=== PATIENT | female | born 1950 | race Caucasian/White ===

== ENCOUNTER 2018-10-28 02:08 | Inpatient (IN) | payer MEDICARE, BC ==
[2018-10-28] VITALS (8 sets, daily range): BP systolic 95–132; BP diastolic 40–75
[~2018-10-28] VITALS: Ht 162.6 cm; Wt 78.5 kg
[2018-10-28] MEDS ORDERED: IPRATROPIUM BROMIDE (0.02%) 0.5MG/2.5ML NEB HHN STA (02:45)
[2018-10-28] MEDS ORDERED: METHYLPREDNISOLONE SOD SUCC 125 MG/2 ML VIAL IV STA (02:45)
[2018-10-28] MEDS ORDERED: MAGNESIUM 2 G PREMIX 50 ML IV ONE (02:45)
[2018-10-28] MEDS ORDERED: ALBUTEROL (0.083%) 2.5MG/3ML NEB HHN SCH (03:00)
[2018-10-28 03:11] LABS: BG BASE EXCESS 2.2 mmol/L (-2.0-2.0); BG CARBOXYHEMOGLOBIN 4.6 % (0.5-1.5); BG DEOXYHEMOGLOBIN 0.9 % (0.0-5.0); BG FRACTION INSPIRED OXYGEN 60; BG HCO3 ACT 30.3 mmol/L (22.0-26.0); BG METHEMOGLOBIN 0.4 % (0.0-1.5); BG OXYGEN SATURATION 99.1 % (92.0-98.5); BG OXYHEMOGLOBIN 94.1 % (94.0-97.0); BG PCO2 61.1 mmHg (35.0-45.0); BG PH 7.313 (7.350-7.450); BG PO2 158.6 mmHg (75.0-100.0); BG SAMPLE SITE RIGHT BRACHIAL; BG TOTAL HEMOGLOBIN 16.2 g/dL (12.0-18.0)
[2018-10-28 04:09] LABS: HEMATOCRIT. 47.5 % (36.0-48.0); HEMOGLOBIN. 16.2 g/dL (12.0-16.0); MEAN CORPUSCULAR HEMOGLOBIN 30.5 pg (28.0-32.0); MEAN CORPUSCULAR VOLUME 89.3 fL (81.0-99.0); MEAN PLATELET VOLUME 9.3 fl (7.4-10.4); PLATELET 222 x1000/uL (130-400); RED BLOOD CELL COUNT 5.32 mill/uL (4.2-5.4); RED CELL DISTRIBUTION WIDTH 13.9 % (11.6-14.6)
[2018-10-28 04:13] LABS: CHLORIDE 96 mEq/L (98-107)
[2018-10-28] MEDS ORDERED: SODIUM CHLORIDE 0.9% 1,000 ML IV ONE (05:28)
[2018-10-28] MEDS ORDERED: POTASSIUM CHLORIDE 20MEQ TABLET SR PO ONE (05:30)
[2018-10-28 07:17] LABS: PLATELET ESTIMATE NORMAL
[2018-10-28] MEDS ORDERED: ESCI10TA MT (10:20)
[2018-10-28] MEDS ORDERED: ESCI20TA MT (10:20)
[2018-10-28] MEDS ORDERED: RAMI2.5C10 PO (10:21)
[2018-10-28] MEDS ORDERED: FLUT1AER IH (10:23)
[2018-10-28] MEDS ORDERED: ALBU6.7H9 INH (10:24)
[2018-10-28] MEDS ORDERED: IPRATROPIUM/ALBUTEROL 0.5-3(2.5)MG/3ML NEB INH PRN (11:15)
[2018-10-28] MEDS ORDERED: ONDANSETRON HCL 4MG/2ML INJ IV PRN (11:15)
[2018-10-28] MEDS ORDERED: NA PHOS,M-B/NA PHOS,DI-BA ENEMA 118ML PR PRN (11:15)
[2018-10-28] MEDS ORDERED: LORAZEPAM 0.5MG TABLET PO PRN (11:15)
[2018-10-28] MEDS ORDERED: MAGNESIUM/ALUMINUM HYDROXIDE/SIMETHICONE 30ML UDC PO PRN (11:15)
[2018-10-28] MEDS ORDERED: DOCUSATE SODIUM 100MG CAPSULE PO PRN (11:15)
[2018-10-28] MEDS ORDERED: ACETAMINOPHEN 325MG TABLET PO PRN (11:15)
[2018-10-28] MEDS ORDERED: ZOLPIDEM TARTRATE 5MG TABLET PO PRN (11:15)
[2018-10-28] MEDS ORDERED: CLONIDINE 0.1MG TABLET PO PRN (11:15)
[2018-10-28] MEDS ORDERED: TRAMADOL 50MG TABLET PO PRN (11:15)
[2018-10-28] MEDS ORDERED: POTASSIUM CHLORIDE 20MEQ TABLET SR PO NR (11:15)
[2018-10-28] MEDS: IPRATROPIUM/ALBUTEROL 0.5-3(2.5)MG/3ML NEB HHN SCH ×4 (11:44→21:06)
[2018-10-28] MEDS ORDERED: KCL 20MEQ/100ML PREMIX 100 ML IV NR (12:00)
[2018-10-28] MEDS: ENOXAPARIN 40MG/0.4ML SYR SUBCUT SCH (12:22)
[2018-10-28] MEDS: METHYLPREDNISOLONE SOD SUCC 125 MG/2 ML VIAL IV SCH ×2 (12:22→20:18)
[2018-10-28] MEDS: LEVOFLOXACIN 500MG PREMIX 100 ML IV SCH (15:12)
[2018-10-28 17:55] LABS: CREATINE KINASE 83 IU/L (26-192)
[2018-10-28 17:56] LABS: CREATINE KINASE MB FRACTION 4.3 ng/mL (0.5-3.6)
[2018-10-28 20:15] LABS: *COCAINE SCREEN URINE NEGATIVE (NEGATIVE)
[2018-10-28 20:16] LABS: *AMPHETAMINES SCREEN URINE NEGATIVE (NEGATIVE); *BARBITURATES SCREEN URINE NEGATIVE (NEGATIVE); CANNABINOID URINE SCREEN NEGATIVE (NEGATIVE); METHADONE URINE SCREEN NEGATIVE (NEGATIVE); OPIATES URINE SCREEN PRESUMTIVE POSITIVE (NEGATIVE); PHENCYCLIDINE URINE SCREEN NEGATIVE (NEGATIVE)
[2018-10-28 20:17] LABS: *BENZODIAZEPINES SCREEN URINE NEGATIVE (NEGATIVE)
[2018-10-28] MEDS: GUAIFENESIN 600MG ER TABLET PO SCH (20:17)
[2018-10-28] MEDS: FAMOTIDINE 20MG TABLET PO SCH (20:17)
[2018-10-28] MEDS: ASCORBIC ACID 500 MG TABLET PO SCH (20:17)
[2018-10-29] VITALS (12 sets, daily range): BP systolic 97–130; BP diastolic 57–74
[2018-10-29 00:02] LABS: CREATINE KINASE 86 IU/L (26-192)
[2018-10-29 00:03] LABS: CREATINE KINASE MB FRACTION 3.6 ng/mL (0.5-3.6)
[2018-10-29] MEDS: IPRATROPIUM/ALBUTEROL 0.5-3(2.5)MG/3ML NEB HHN SCH ×5 (01:10→21:16)
[2018-10-29] MEDS: METHYLPREDNISOLONE SOD SUCC 125 MG/2 ML VIAL IV SCH ×3 (03:16→20:18)
[2018-10-29 06:21] LABS: CHLORIDE 103 mEq/L (98-107)
[2018-10-29] MEDS: GUAIFENESIN 600MG ER TABLET PO SCH ×2 (08:38→20:18)
[2018-10-29] MEDS: ASPIRIN 325MG EC TABLET PO SCH (08:38)
[2018-10-29] MEDS: ASCORBIC ACID 500 MG TABLET PO SCH ×2 (08:38→20:18)
[2018-10-29] MEDS: FAMOTIDINE 20MG TABLET PO SCH ×2 (08:38→20:18)
[2018-10-29] MEDS: ENOXAPARIN 40MG/0.4ML SYR SUBCUT SCH (11:13)
[2018-10-29] MEDS: LEVOFLOXACIN 500MG PREMIX 100 ML IV SCH (11:13)
[2018-10-29] MEDS: GUAIFENESIN 200MG/10ML SUGAR FREE UDC PO PRN (16:49)
[2018-10-30] VITALS (12 sets, daily range): BP systolic 98–154; BP diastolic 60–118
[2018-10-30] MEDS: IPRATROPIUM/ALBUTEROL 0.5-3(2.5)MG/3ML NEB HHN SCH ×6 (00:54→21:14)
[2018-10-30] MEDS: METHYLPREDNISOLONE SOD SUCC 125 MG/2 ML VIAL IV SCH ×3 (04:13→20:53)
[2018-10-30] MEDS: FAMOTIDINE 20MG TABLET PO SCH ×2 (08:39→20:53)
[2018-10-30] MEDS: ASPIRIN 325MG EC TABLET PO SCH (08:39)
[2018-10-30] MEDS: GUAIFENESIN 600MG ER TABLET PO SCH ×2 (08:39→20:53)
[2018-10-30] MEDS: ASCORBIC ACID 500 MG TABLET PO SCH ×2 (08:39→20:53)
[2018-10-30 12:07] LABS: BG CARBOXYHEMOGLOBIN 0.8 % (0.5-1.5); BG DEOXYHEMOGLOBIN 4.7 % (0.0-5.0); BG FRACTION INSPIRED OXYGEN 36; BG HCO3 ACT 28.6 mmol/L (22.0-26.0); BG METHEMOGLOBIN 0.3 % (0.0-1.5); BG OXYGEN SATURATION 95.2 % (92.0-98.5); BG OXYHEMOGLOBIN 94.2 % (94.0-97.0); BG PH 7.358 (7.350-7.450); BG PO2 75.9 mmHg (75.0-100.0); BG SAMPLE SITE RIGHT BRACHIAL; BG TOTAL HEMOGLOBIN 14.7 g/dL (12.0-18.0); BG VENT MODE NASAL CANNULA
[2018-10-30] MEDS: ENOXAPARIN 40MG/0.4ML SYR SUBCUT SCH (12:37)
[2018-10-30] MEDS: LEVOFLOXACIN 500MG PREMIX 100 ML IV SCH (12:52)
[2018-10-31] VITALS (12 sets, daily range): BP systolic 103–152; BP diastolic 48–91
[2018-10-31] MEDS: IPRATROPIUM/ALBUTEROL 0.5-3(2.5)MG/3ML NEB HHN SCH ×6 (00:58→21:12)
[2018-10-31] MEDS: METHYLPREDNISOLONE SOD SUCC 125 MG/2 ML VIAL IV SCH ×3 (05:44→20:15)
[2018-10-31] MEDS: ASPIRIN 325MG EC TABLET PO SCH (08:56)
[2018-10-31] MEDS: GUAIFENESIN 600MG ER TABLET PO SCH ×2 (08:56→20:15)
[2018-10-31] MEDS: ASCORBIC ACID 500 MG TABLET PO SCH ×2 (08:57→20:16)
[2018-10-31] MEDS: FAMOTIDINE 20MG TABLET PO SCH (08:57)
[2018-10-31] MEDS: LEVOFLOXACIN 500MG PREMIX 100 ML IV SCH (12:50)
[2018-10-31] MEDS: ENOXAPARIN 40MG/0.4ML SYR SUBCUT SCH (12:50)
[2018-10-31] MEDS ORDERED: TERBUTALINE SULFATE 1MG/ML VIAL SUBCUT NR (14:45)
[2018-10-31] MEDS ORDERED: AZITHROMYCIN 500 MG TABLET PO SCH (15:00)
[2018-10-31 15:42] LABS: BG BASE EXCESS 5.8 mmol/L (-2.0-2.0); BG CARBOXYHEMOGLOBIN 0.8 % (0.5-1.5); BG DEOXYHEMOGLOBIN 4.7 % (0.0-5.0); BG FRACTION INSPIRED OXYGEN 36; BG HCO3 ACT 32.6 mmol/L (22.0-26.0); BG METHEMOGLOBIN 0.3 % (0.0-1.5); BG OXYGEN SATURATION 95.2 % (92.0-98.5); BG OXYHEMOGLOBIN 94.2 % (94.0-97.0); BG PCO2 55.4 mmHg (35.0-45.0); BG PH 7.387 (7.350-7.450); BG PO2 73.5 mmHg (75.0-100.0); BG SAMPLE SITE RIGHT BRACHIAL; BG VENT MODE NASAL CANNULA
[2018-10-31 16:02] LABS: HEMOGLOBIN. 14.4 g/dL (12.0-16.0); MEAN CORPUSCULAR VOLUME 89.6 fL (81.0-99.0); MEAN PLATELET VOLUME 9.1 fl (7.4-10.4); PLATELET 216 x1000/uL (130-400); RED BLOOD CELL COUNT 4.79 mill/uL (4.2-5.4); RED CELL DISTRIBUTION WIDTH 13.9 % (11.6-14.6)
[2018-10-31 16:22] LABS: CHLORIDE 99 mEq/L (98-107)
[2018-10-31 16:29] LABS: PLATELET ESTIMATE NORMAL
[2018-10-31] MEDS: MONTELUKAST SODIUM 10MG TABLET PO SCH (17:58)
[2018-10-31] MEDS: FAMOTIDINE 20MG/2ML VIAL IV SCH (20:15)
[2018-10-31] MEDS: LORATADINE 10MG TABLET PO SCH (20:16)
[2018-10-31] MEDS: FLUTICASONE PROPIONATE 50MCG/SPRAY BOTTLE BOTHNSTRLS SCH (20:17)
[2018-11-01] VITALS (12 sets, daily range): BP systolic 115–151; BP diastolic 64–89
[2018-11-01] MEDS: IPRATROPIUM/ALBUTEROL 0.5-3(2.5)MG/3ML NEB HHN SCH ×6 (00:42→20:56)
[2018-11-01] MEDS: METHYLPREDNISOLONE SOD SUCC 125 MG/2 ML VIAL IV SCH ×2 (03:24→12:43)
[2018-11-01] MEDS: ASCORBIC ACID 500 MG TABLET PO SCH ×2 (08:28→21:09)
[2018-11-01] MEDS: ASPIRIN 325MG EC TABLET PO SCH (08:28)
[2018-11-01] MEDS: FAMOTIDINE 20MG/2ML VIAL IV SCH ×2 (08:28→21:09)
[2018-11-01] MEDS: GUAIFENESIN 600MG ER TABLET PO SCH ×2 (08:28→21:09)
[2018-11-01] MEDS: FLUTICASONE PROPIONATE 50MCG/SPRAY BOTTLE BOTHNSTRLS SCH ×2 (08:29→21:12)
[2018-11-01] MEDS: AZITHROMYCIN 250 MG TABLET PO SCH (09:19)
[2018-11-01] MEDS: ENOXAPARIN 40MG/0.4ML SYR SUBCUT SCH (12:43)
[2018-11-01] MEDS: LEVOFLOXACIN 500MG PREMIX 100 ML IV SCH (12:44)
[2018-11-01] MEDS: GUAIFENESIN 200MG/10ML SUGAR FREE UDC PO PRN (12:44)
[2018-11-01] MEDS ORDERED: METHYLPREDNISOLONE SOD SUCC 40 MG/ML VIAL IV SCH (15:00)
[2018-11-01] MEDS ORDERED: TERBUTALINE SULFATE 1MG/ML VIAL SUBCUT NR (15:00)
[2018-11-01 16:03] LABS: BG BASE EXCESS 9.6 mmol/L (-2.0-2.0); BG CARBOXYHEMOGLOBIN 0.9 % (0.5-1.5); BG DEOXYHEMOGLOBIN 10.2 % (0.0-5.0); BG FRACTION INSPIRED OXYGEN 21; BG HCO3 ACT 35.5 mmol/L (22.0-26.0); BG METHEMOGLOBIN 0.3 % (0.0-1.5); BG OXYGEN SATURATION 89.7 % (92.0-98.5); BG OXYHEMOGLOBIN 88.6 % (94.0-97.0); BG PCO2 51.6 mmHg (35.0-45.0); BG PH 7.455 (7.350-7.450); BG PO2 52.9 mmHg (75.0-100.0); BG SAMPLE SITE LEFT RADIAL; BG TOTAL HEMOGLOBIN 15.5 g/dL (12.0-18.0); BG VENT MODE ROOM AIR
[2018-11-01] MEDS: MONTELUKAST SODIUM 10MG TABLET PO SCH (16:59)
[2018-11-01] MEDS: LORATADINE 10MG TABLET PO SCH (21:09)
[2018-11-01] MEDS: METHYLPREDNISOLONE SOD SUCC 40 MG/ML VIAL IV SCH (22:07)
[2018-11-02] VITALS (12 sets, daily range): BP systolic 116–168; BP diastolic 63–100
[2018-11-02] MEDS: IPRATROPIUM/ALBUTEROL 0.5-3(2.5)MG/3ML NEB HHN SCH ×6 (00:25→20:26)
[2018-11-02] MEDS: METHYLPREDNISOLONE SOD SUCC 40 MG/ML VIAL IV SCH ×2 (05:14→13:01)
[2018-11-02] MEDS: ASPIRIN 325MG EC TABLET PO SCH (08:55)
[2018-11-02] MEDS: GUAIFENESIN 600MG ER TABLET PO SCH ×2 (08:55→22:12)
[2018-11-02] MEDS: FAMOTIDINE 20MG/2ML VIAL IV SCH ×2 (08:55→22:07)
[2018-11-02] MEDS: ASCORBIC ACID 500 MG TABLET PO SCH ×2 (08:55→22:07)
[2018-11-02] MEDS: AZITHROMYCIN 250 MG TABLET PO SCH (09:04)
[2018-11-02] MEDS: FLUTICASONE PROPIONATE 50MCG/SPRAY BOTTLE BOTHNSTRLS SCH ×2 (09:39→22:07)
[2018-11-02] MEDS: LEVOFLOXACIN 500MG TABLET PO SCH (10:11)
[2018-11-02] MEDS: ENOXAPARIN 40MG/0.4ML SYR SUBCUT SCH (11:53)
[2018-11-02] MEDS: PREDNISONE 20MG TABLET PO SCH (16:50)
[2018-11-02] MEDS: MONTELUKAST SODIUM 10MG TABLET PO SCH (17:29)
[2018-11-02] MEDS: LORATADINE 10MG TABLET PO SCH (22:07)
[2018-11-03] VITALS (13 sets, daily range): BP systolic 109–151; BP diastolic 55–104
[2018-11-03] MEDS: IPRATROPIUM/ALBUTEROL 0.5-3(2.5)MG/3ML NEB HHN SCH ×6 (00:17→20:17)
[2018-11-03] MEDS: ASCORBIC ACID 500 MG TABLET PO SCH ×2 (08:12→23:32)
[2018-11-03] MEDS: ASPIRIN 325MG EC TABLET PO SCH (08:12)
[2018-11-03] MEDS: GUAIFENESIN 600MG ER TABLET PO SCH ×2 (08:12→23:32)
[2018-11-03] MEDS: PREDNISONE 20MG TABLET PO SCH (08:12)
[2018-11-03] MEDS: AZITHROMYCIN 250 MG TABLET PO SCH (08:13)
[2018-11-03] MEDS: FAMOTIDINE 20MG/2ML VIAL IV SCH ×2 (08:13→23:31)
[2018-11-03] MEDS: FLUTICASONE PROPIONATE 50MCG/SPRAY BOTTLE BOTHNSTRLS SCH (08:39)
[2018-11-03] MEDS: LEVOFLOXACIN 500MG TABLET PO SCH (10:04)
[2018-11-03] MEDS: ENOXAPARIN 40MG/0.4ML SYR SUBCUT SCH (11:12)
[2018-11-03] MEDS: MONTELUKAST SODIUM 10MG TABLET PO SCH (17:26)
[2018-11-03] MEDS: LORATADINE 10MG TABLET PO SCH (23:32)
[2018-11-04] VITALS (10 sets, daily range): BP systolic 108–151; BP diastolic 57–99
[2018-11-04] MEDS: IPRATROPIUM/ALBUTEROL 0.5-3(2.5)MG/3ML NEB HHN SCH ×5 (00:01→16:16)
[2018-11-04] MEDS: FAMOTIDINE 20MG/2ML VIAL IV SCH (08:58)
[2018-11-04] MEDS: AZITHROMYCIN 250 MG TABLET PO SCH (08:58)
[2018-11-04] MEDS: ASCORBIC ACID 500 MG TABLET PO SCH (08:58)
[2018-11-04] MEDS: ASPIRIN 325MG EC TABLET PO SCH (08:58)
[2018-11-04] MEDS: GUAIFENESIN 600MG ER TABLET PO SCH (08:58)
[2018-11-04] MEDS ORDERED: PREDNISONE 20MG TABLET PO SCH (09:00)
[2018-11-04] MEDS: ENOXAPARIN 40MG/0.4ML SYR SUBCUT SCH (12:02)
[2018-11-04] MEDS: MONTELUKAST SODIUM 10MG TABLET PO SCH (17:28)
[2018-11-05] MEDS ORDERED: PREDNISONE 20MG TABLET PO SCH (08:00)
== END 2018-11-04 17:50 | disposition home or self-care (01) | DRG 189 ==
LOC: ER 03:08 → 5EST 05:48 → EDBEDREQ 05:52 → EDBEDREQSVC 05:52 → EDBEDREQTM 05:52 → ENRESERV 08:48
PROVIDERS: ADMIT Internal Medicine; ATTEND Internal Medicine
PROC: 5A09357 Assistance with Respiratory Ventilation, Less than 24 Consecutive Hours, Continuous Positive Airway Pressure (ICD-10-PCS; 2018-10-28)
PROC: 5A09457 Assistance with Respiratory Ventilation, 24-96 Consecutive Hours, Continuous Positive Airway Pressure (ICD-10-PCS; 2018-10-28)
PROC: 5A09457 Assistance with Respiratory Ventilation, 24-96 Consecutive Hours, Continuous Positive Airway Pressure (ICD-10-PCS; 2018-10-30)
PROC: 5A09357 Assistance with Respiratory Ventilation, Less than 24 Consecutive Hours, Continuous Positive Airway Pressure (ICD-10-PCS; principal; 2018-11-02)
DX: J96.02 Acute respiratory failure with hypercapnia (principal); J44.1 Chronic obstructive pulmonary disease with (acute) exacerbation; J44.0 Chronic obstructive pulmonary disease with (acute) lower respiratory infection; J96.01 Acute respiratory failure with hypoxia; J20.9 Acute bronchitis, unspecified; E87.6 Hypokalemia; F17.210 Nicotine dependence, cigarettes, uncomplicated; I10 Essential (primary) hypertension; K75.9 Inflammatory liver disease, unspecified; Z90.2 Acquired absence of lung [part of]
CPT/HCPCS: 36415; 36600; 71045; 78582; 80048; 80305; 82375; 82550; 82553; 82805; 83036; 83605; 83735; 83880; 84484; 87804; 93005; 93306; 93970; 94618; 94640; 94660; 96365; 96375; 97116; 97162; 97166; 97530; 97535; 99291; A9558; J1650; J1956; J2920; J2930; J3105; J3475; J3480; J3490; J7030; J7050; J7512; J7611; J7620